=== PATIENT | male | born 1990 | race Two or more races ===

== ENCOUNTER 2021-02-03 21:11 | Emergency (ER) | payer OTHER ==
[~2021-02-03] VITALS: Ht 170.2 cm; Wt 107.1 kg
[2021-02-03 21:25] VITALS: BP 127/78
--- NOTE | 2021-02-03 21:33 | PHYS DOC ---
Past History Past Surgical History: Other General Adult EDM: Chief Complaint: BACK PAIN OR INJURY HPI: HPI: ".. I had bad back since I hurt it in 2019.. were on may with full packs.. and ever since then I get problems now and then.. but tonight I was lifting weights.. and I got really severe pain........ " Patient is a 30 year old male who presents with above hx and complaints of exacerbation of his chronic back pain,. Patient localizes pain in lumbar sacral area radiates to both sciatica. Straight leg lift exacerbates pain. DTRs +2 patella. Little more reactive on right. No history of fever or chills. Up-to-date vaccinations. No recent travel. No specific trauma outside of the weightlifting tonight. No history immunosuppression. No problems with defecation or urination. Patient normally follows at [facility]. Review of Systems: Review of Systems: Constitutional: Denies fever or chills Eyes: Denies change in visual acuity HENT: Denies nasal congestion or sore throat Respiratory: Denies cough or shortness of breath Cardiovascular: Denies chest pain or edema GI: Denies abdominal pain, nausea, vomiting, bloody stools or diarrhea : Denies dysuria Musculoskeletal: Complains of severe back pain Integument: Denies rash Neurologic: Denies headache, focal weakness or sensory changes Endocrine: Denies polyuria or polydipsia Lymphatic: Denies swollen glands Psychiatric: Denies depression or anxiety Family History: Family History: Noncontributory presentation Current Medications: Current Meds: See nursing for home meds Allergies: Allergies: Allergies Coded Allergies Type Severity Reaction Last Updated Verified No Known Drug Allergies 02/03/21 No Physical Exam: PE: Constitutional: Well developed, well nourished, in acute distress, non-toxic appearance. [] HENT: Normocephalic, atraumatic, bilateral external ears normal, oropharynx moist, no oral exudates, nose normal. [] Eyes: PERRLA, EOMI, conjunctiva normal, no discharge. [] Neck: Normal range of motion, no tenderness, supple, no stridor. [] Cardiovascular:Heart rate regular rhythm, no murmur [] Lungs & Thorax: Bilateral breath sounds clear to auscultation [] Abdomen: Bowel sounds normal, soft, no tenderness, no masses, no pulsatile masses. Normal male immediate. Testicles descended. No saddle loss. Skin: Warm, dry, no erythema, no rash. [] Back: Midline lumbar sacral tenderness with radiation into both sciatic nerves,, no CVA tenderness. [] Straight leg lifts exacerbates lumbar sacral pain. Extremities: No tenderness, no cyanosis, no clubbing, ROM intact, no edema. [] Neurologic: Alert and oriented X 3, normal motor function, normal sensory function, no focal deficits noted. DTRs +2 patella. With more activity on righ t. Psychologic: Affect normal, judgement normal, mood normal. [] Current Patient Data: Vital Signs: Vital Signs Date Time Temp Pulse Resp B/P (MAP) Pulse Ox O2 Delivery O2 Flow Rate FiO2 02/03/21 21:25 98.1 65 22 127/78 (94 100 Room Air EKG: EKG: [] Radiology/Procedures: Radiology/Procedures: [][place] [address] IMAGING REPORT Signed PATIENT: ARIAN LEI ACCOUNT: [id number] : 1990 LOCATION: ER AGE: 30 SEX: M EXAM STATUS: PRE ER ORD. PHYSICIAN: JACKIE VARGAS MD REASON: back injury PROCEDURE: CT LUMBAR SPINE WO CONTRAST Study: CT lumbar spine without contrast INDICATION: Back injury. COMPARISON: None. TECHNIQUE: Axial CT imaging of the lumbar spine performed without the use of intravenous contrast. One or more of the following individualized dose reduction techniques were utilized for this examination: 1. Automated exposure control 2. Adjustment of the mA and/or kV according to patient size 3. Use of iterative reconstruction technique. FINDINGS: No acute fracture of the lumbar spine, lower thoracic spine or partially imaged sacrum/iliac bones. Mild disc space height loss and endplate osteophytic ridging at L4-L5. No advanced facet arthrosis. Mild disc bulge at L4-L5 central canal narrowing estimated at mild. Unremarkable paraspinous soft tissues, lower lungs and visualized retroperitoneum. IMPRESSION: 1. No acute fracture or traumatic malalignment. 2. Mild early degenerative changes at L4-L5 with estimated no more than mild central canal narrowing. Electronically signed by: ROSA MARIA KAISER MD (02/03/2021 10:36 PM) [facility] DICTATED AND SIGNED BY: ROSA MARIA KAISER MD DATE: 02/03/212232 CC: JACKIE VARGAS MD; PCP,UNKNOWN ~MTH0 0 Heart Score: C/O Chest Pain: N/A Risk Factors: Risk Factors: DM, Current or recent (<one month) smoker, HTN, HLP, family history of CAD, obesity. Risk Scores: Score 0 - 3: 2.5% MACE over next 6 weeks - Discharge Home Score 4 - 6: 20.3% MACE over next 6 weeks - Admit for Clinical Observation Score 7 - 10: 72.7% MACE over next 6 weeks - Early Invasive Strategies Course & Med Decision Making: Course & Med Decision Making Pertinent Labs and Imaging studies reviewed. (See chart for details) Patient use ice packs as needed. Patient follow-up primary care. Patient follow-up with [facility]. Take Flexeril 10 mg up to 3 times a day for muscle spasms. Take Tylenol and ibuprofen for pain. Use ice packs for the next 3 days. If no reinjury may advance to moist heat. May need MRI in 2 fully evaluate degenerative joint disease and disc herniation. May be a candidate for localized steroid injections. Must follow-up. Return if any concerns. Copy of patient's CT issued to patient so he can take it to his follow-up appointment. Impression: 1. Hx. Chronic Back 2. Acute Excacerbation of Bilateral Sciatica [] Donald Disclaimer: Donald Disclaimer: This electronic medical record was generated, in whole or in part, using a voice recognition dictation system. Departure Departure: Referrals: PCP,UNKNOWN (PCP) Scripts Cyclobenzaprine Hcl (CYCLOBENZAPRINE HCL) 10 Mg Tablet 10 MG PO TID for spasms, #30 TAB Prov: JACKIE VARGAS MD 02/03/21 Donald Disclaimer This chart was dictated in whole or in part using Voice Recognition software in a busy, high-work load, and often noisy Emergency Department environment. It may contain unintended and wholly unrecognized errors or omissions. JACKIE VARGAS MD Feb 03, 2021 21:33
[2021-02-03] MEDS ORDERED: ORPHENADRINE CITRATE 60 MG/2 ML VIAL. ONE (21:47)
[2021-02-03] MEDS ORDERED: MORPHINE SULFATE 10 MG/ML SYRINGE. SQ ONE (22:00)
[2021-02-03] MEDS ORDERED: ORPHENADRINE CITRATE 60 MG/2 ML VIAL. IM ONE (22:00)
[2021-02-03] MEDS ORDERED: KETOROLAC 60 MG/2 ML VIAL. IM ONE (22:00)
[2021-02-03] MEDS ORDERED: methylPREDNISolone ACETATE 40 MG/ML VIAL. IM ONE (22:00)
--- NOTE | 2021-02-03 22:39 | RAD ---
Study: CT lumbar spine without contrast INDICATION: Back injury. COMPARISON: None. TECHNIQUE: Axial CT imaging of the lumbar spine performed without the use of intravenous contrast. One or more of the following individualized dose reduction techniques were utilized for this examinat ion: 1. Automated exposure control 2. Adjustment of the mA and/or kV according to patient size 3. Use of iterative reconstruction technique. FINDINGS: No acute fracture of the lumbar spine, lower thoracic spine or partially imaged sacrum/iliac bones. Mild disc space height loss and endplate osteophytic ridging at L4-L5. No advanced facet arthrosis. M ild disc bulge at L4-L5 central canal narrowing estimated at mild. Unremarkable paraspinous soft tissues, lower lungs and visualized retroperitoneum. IMPRESSION: 1. No acute fracture or traumatic malalignment. 2. Mild early degenerative changes at L4-L5 with estimated no more than mild central canal narrowing . Electronically signed by: ROSA MARIA KAISER MD (02/03/2021 10:36 PM) [facility]
[2021-02-03] MEDS ORDERED: CYCL10TA19 PO (22:47)
== END 2021-02-03 23:44 | disposition home or self-care (01) ==
LOC: ER 21:11
DX: M54.42 Lumbago with sciatica, left side (principal); M54.41 Lumbago with sciatica, right side
CPT/HCPCS: 72131; 96372; 99284; J1030; J1885; J2060; J2270; J2360